=== PATIENT | male | born 1945 | race Asian ===

== ENCOUNTER → 2017-04-08 | Outpatient (CLI) | payer OTHER, MEDICAID ==
[~2017-04-08] MED LIST: ASPI-496 PO; ATOR40TA78 PO; CARV12.543 PO; DIGO125T PO; METF500T4 PO; OLME20TA19 PO; OXYC1TAB7 PO; REGADENOSON 0.4 MG/5 ML SYRINGE ONE; RIVA20TA PO; WARF2.5T73 PO
== END | disposition home or self-care (01) ==
LOC: CFH 07:02
PROVIDERS: ATTEND Internal Medicine Cardiovascular Disease
DX: I08.2 Rheumatic disorders of both aortic and tricuspid valves (principal); I25.10 Atherosclerotic heart disease of native coronary artery without angina pectoris; I25.2 Old myocardial infarction; I10 Essential (primary) hypertension; Z95.0 Presence of cardiac pacemaker
CPT/HCPCS: 93306; J2785

== ENCOUNTER → 2017-05-01 | Outpatient (CLI) | payer OTHER, MEDICAID | END | disposition home or self-care (01) | LOC: CFH 08:15 | PROVIDERS: ATTEND Internal Medicine Cardiovascular Disease | DX: I25.9 Chronic ischemic heart disease, unspecified (principal); I25.10 Atherosclerotic heart disease of native coronary artery without angina pectoris; I10 Essential (primary) hypertension | CPT/HCPCS: 78452; 93017; A9502; J2785 ==

== ENCOUNTER 2018-07-04 18:52 | Emergency (ER) | payer OTHER, MEDICAID ==
[~2018-07-04] VITALS: Ht 167.6 cm; Wt 69.4 kg
[~2018-07-04 18:52] MED LIST changes: +METF500T17 PO; -METF500T4 PO; +OLME20TA17 PO; -OLME20TA19 PO; -REGADENOSON 0.4 MG/5 ML SYRINGE ONE; +WARF2.5T32 PO; -WARF2.5T73 PO
[2018-07-04 18:56] VITALS: BP 132/63
[2018-07-04 19:56] LABS: INTERNATIONAL NORMALIZED RATIO 1.05 (0.93-1.1); PROTHROMBIN TIME 11.1 Seconds (9.6-11.5)
== END 2018-07-04 20:05 | disposition home or self-care (01) ==
LOC: ED 19:16
DX: J06.9 Acute upper respiratory infection, unspecified (principal); Z95.1 Presence of aortocoronary bypass graft; Z95.0 Presence of cardiac pacemaker; E11.9 Type 2 diabetes mellitus without complications; I11.9 Hypertensive heart disease without heart failure
CPT/HCPCS: 36415; 85610; 85730; 99283

== ENCOUNTER 2018-09-08 03:59 | Emergency (ER) | payer MEDICARE, MEDICAID ==
[~2018-09-08] VITALS: Ht 170.2 cm; Wt 67.2 kg
--- NOTE | 2018-09-08 04:16 | NUR ---
PT HERE FOR HTN WITH DIZZINESS. PT DENIES CP OR HEADACHE. BP ELEVATED IN TRIAGE. MD AT BEDSIDE.
[2018-09-08 04:46] VITALS: BP 157/75
[2018-09-08 05:23] LABS: BASOPHILS # (AUTO) 0.05 x10^3/uL (0-0.1); BASOPHILS % (AUTO) 1 % (0-1); EOSINOPHILS # (AUTO) 0.14 x10^3/uL (0-0.4); EOSINOPHILS % (AUTO) 2 % (1-7); LYMPHOCYTES # (AUTO) 2.23 x10^3/uL (1-3.4); LYMPHOCYTES % (AUTO) 38 % (22-44); MD NO; MEAN CORPUSCULAR HEMOGLOBIN 31.3 pg (27.5-34.5); MEAN CORPUSCULAR HGB CONC 34.5 g/dL (33.2-36.2); MEAN CORPUSCULAR VOLUME 90.7 fL (81-97); MEAN PLATELET VOLUME 8.8 fL (7.4-10.4); MONOCYTES # (AUTO) 0.48 x10^3/uL (0.2-0.8); MONOCYTES % (AUTO) 8 % (2-9); NEUTROPHILS % (AUTO) 51 % (42-75); PLATELET COUNT 135 x10^3/uL (130-400); RED BLOOD COUNT 4.56 x10^6/uL (4.38-5.82); RED CELL DISTRIBUTION WIDTH 13.8 % (9.4-14.8)
--- NOTE | 2018-09-08 05:32 | NUR ---
PTS BP HAS IMPROVED TO 154/71. MD AWARE. HOLDING CLONIDINE PER MDS ORDER.
[2018-09-08 05:34] LABS: ALBUMIN 3.4 g/dL (3.4-5.0); ANION GAP 4 mmol/L (5-15); CALCIUM 8.6 mg/dL (8.5-10.1); CHLORIDE 109 mmol/L (98-107)
[2018-09-08 05:40] LABS: CREATININE 0.92 mg/dL (0.7-1.3); TROPONIN I 0.031 ng/mL (0.000-0.045)
--- NOTE | 2018-09-08 06:13 | NUR ---
Patient given discharge instructions and they have confirmed that they understand the instructions. Patient ambulatory with steady gait.
== END 2018-09-08 06:16 | disposition home or self-care (01) ==
LOC: ED 05:33
DX: I10 Essential (primary) hypertension (principal); Z95.0 Presence of cardiac pacemaker; Z95.1 Presence of aortocoronary bypass graft; E11.9 Type 2 diabetes mellitus without complications
CPT/HCPCS: 36415; 71045; 80048; 80162; 82040; 83880; 84484; 85025; 93005; 99284

== ENCOUNTER 2019-01-09 20:04 | Inpatient (IN) | payer MEDICARE, MEDICAID ==
[~2019-01-09] VITALS: Ht 170.2 cm; Wt 75.2 kg
[~2019-01-09 20:04] MED LIST changes: +ACET325T14 PO; +CYCL-259 PO; +HYDR-3240 PO
[2019-01-09] MEDS ORDERED: SODIUM CHLORIDE 0.9% 1,000ML IVBOLUS ONE ×2 (20:30→21:30)
[2019-01-09] MEDS ORDERED: FENTANYL PF 100 MCG/2ML ONE ×2 (20:36→22:21)
[2019-01-09] MEDS: FENTANYL PF 100 MCG/2ML IVPush PRN ×2 (20:40→22:47)
--- NOTE | 2019-01-09 20:40 | NUR ---
PT TO XRAY
[2019-01-09 20:45] LABS: MEAN CORPUSCULAR HGB CONC 33.9 g/dL (33.2-36.2); MEAN CORPUSCULAR VOLUME 91.6 fL (81-97); MEAN PLATELET VOLUME 8.8 fL (7.4-10.4); PLATELET COUNT 219 x10^3/uL (130-400); RED BLOOD COUNT 2.97 x10^6/uL (4.38-5.82); RED CELL DISTRIBUTION WIDTH 15.2 % (9.4-14.8)
[2019-01-09 20:53] LABS: ALBUMIN 1.5 g/dL (3.4-5.0); ANION GAP 11 mmol/L (5-15); CALCIUM 7.6 mg/dL (8.5-10.1); CHLORIDE 98 mmol/L (98-107); CREATININE 4.05 mg/dL (0.7-1.3)
[2019-01-09 20:58] LABS: BASOPHILS % (AUTO) 1 % (0-1); EOSINOPHILS # (AUTO) 0.01 x10^3/uL (0-0.4); EOSINOPHILS % (AUTO) 0 % (1-7); LYMPHOCYTES % (AUTO) 3 % (22-44); MD SCAN; MONOCYTES # (AUTO) 0.72 x10^3/uL (0.2-0.8); MONOCYTES % (AUTO) 5 % (2-9); NEUTROPHILS # (AUTO) 13.64 x10^3/uL (1.8-6.8); NEUTROPHILS % (AUTO) 92 % (42-75)
--- NOTE | 2019-01-09 21:24 | NUR ---
NOTIFIED OF CRITICAL TROPONIN AND BUN
[2019-01-09] MEDS ORDERED: HEPARIN 25,000 UNITS/500ML PMX 500 ML ONE (21:54)
[2019-01-09] MEDS ORDERED: HEPARIN 5,000 UNITS/ML, 1ML ONE (21:55)
[2019-01-09] MEDS ORDERED: HEPARIN 5,000 UNITS/ML, 1ML IV PRN (22:00)
[2019-01-09] MEDS ORDERED: HEPARIN 25,000 UNITS/500ML PMX 500 ML IV PRN (22:00)
[2019-01-09] MEDS ORDERED: HEPARIN 5,000 UNITS/ML, 1ML IV ONE (22:00)
--- NOTE | 2019-01-09 22:08 | NUR ---
tamia rn: verified heparin with primary rn.
--- NOTE | 2019-01-09 22:17 | NUR ---
HEPARIN GTT INITIATED, PT STILL C/O PAIN. MD TO ORDER VALIUM. 2ND LITER NS COMPLETED. ADMIT ORDERS IN AND MD DISCUSSED POC WITH PT AND FAMILY. PT CONFUSED AND PER FAMILY MAKING ODD STATEMENTS AT TIMES, MD AWARE. EMT ATTEMPTING TO START ANOTHER IV. ADMIT ORDERS IN, AWAITNG BED ASSIGNMENT
--- NOTE | 2019-01-09 22:38 | NUR ---
REPORT TO ANAY
[2019-01-09] MEDS ORDERED: SODIUM CHLORIDE 0.9% 1,000 ML IV SCH (23:00)
[2019-01-09] MEDS ORDERED: NITROGLYCERIN 0.4 MG/SPRAY SL PRN (23:00)
[2019-01-09] MEDS ORDERED: BACLOFEN 10 MG TABLET PO PRN (23:00)
[2019-01-09] MEDS ORDERED: morphine SULFATE 10 MG/ML, 1ML IV PRN (23:00)
[2019-01-09 23:01] VITALS: BP 106/61
[2019-01-10] VITALS (7 sets, daily range): BP systolic 81–108; BP diastolic 47–55
[2019-01-10] MEDS ORDERED: DEXTROSE 50%, 50ML SYRINGE IVPush PRN
[2019-01-10] MEDS ORDERED: GLUCAGON 1 MG IM PRN
[2019-01-10] MEDS ORDERED: DEXTROSE 4 GM TAB.CHEW PO PRN
[2019-01-10] MEDS ORDERED: HEPARIN MC SCH (00:30)
[2019-01-10] MEDS ORDERED: AZITHROMYCIN 500 MG TABLET PO ONE (00:30)
[2019-01-10] MEDS ORDERED: CEFTRIAXONE PMX 1GM/50ML 50 ML IV SCH (00:30)
[2019-01-10 01:19] LABS: CHOLESTEROL, TOTAL 97 mg/dL (140-239); TRIGLYCERIDES 371 mg/dL (50-200); VLDL CHOLESTEROL 74 mg/dL (0-25)
[2019-01-10] MEDS: ATORVASTATIN 80 MG TABLET PO SCH ×2 (01:21→21:09)
[2019-01-10 01:22] LABS: CHOL/HDL RATIO 10.8; HDL CHOL % 9 % (26-37); HDL CHOLESTEROL (DIRECT) 9 mg/dL (40-60); LDL CHOLESTEROL,CALCULATED 14 mg/dL (54-169); LDL/HDL RATIO 1.6 (0.5-3.0)
[2019-01-10] MEDS: SODIUM CHLORIDE FLUSH 10ML SYR IVF SCH ×5 (01:27→21:09)
[2019-01-10] MEDS ORDERED: DILTIAZEM 5 MG/ML, 5ML IVPush ONE (01:30)
[2019-01-10] MEDS ORDERED: SODIUM CHLORIDE 0.9% 1,000 ML IV SCH ×2 (01:30→23:00)
[2019-01-10] MEDS ORDERED: DILTIAZEM 5 MG/ML, 5ML IVPush PRN (02:00)
[2019-01-10 05:25] LABS: MEAN CORPUSCULAR HEMOGLOBIN 30.3 pg (27.5-34.5); MEAN CORPUSCULAR HGB CONC 33.4 g/dL (33.2-36.2); MEAN CORPUSCULAR VOLUME 90.5 fL (81-97); MEAN PLATELET VOLUME 9.3 fL (7.4-10.4); PLATELET COUNT 187 x10^3/uL (130-400); RED BLOOD COUNT 2.89 x10^6/uL (4.38-5.82); RED CELL DISTRIBUTION WIDTH 15.6 % (9.4-14.8)
[2019-01-10 05:38] LABS: CALCIUM 7.5 mg/dL (8.5-10.1); CHLORIDE 102 mmol/L (98-107)
[2019-01-10 05:44] LABS: ALANINE AMINOTRANSFERASE 105 U/L (12-78); ALBUMIN 1.5 g/dL (3.4-5.0); ALKALINE PHOSPHATASE 357 U/L (45-117); ANION GAP 11 mmol/L (5-15); BILIRUBIN,TOTAL 2.3 mg/dL (0.2-1.0); CREATININE 4.02 mg/dL (0.7-1.3); TOTAL PROTEIN 5.8 g/dL (6.4-8.2)
[2019-01-10 05:51] LABS: BASOPHILS # (AUTO) 0.01 x10^3/uL (0-0.1); BASOPHILS % (AUTO) 0 % (0-1); EOSINOPHILS # (AUTO) 0.01 x10^3/uL (0-0.4); EOSINOPHILS % (AUTO) 0 % (1-7); LYMPHOCYTES # (AUTO) 0.64 x10^3/uL (1-3.4); LYMPHOCYTES % (AUTO) 5 % (22-44); MD SCAN; MONOCYTES # (AUTO) 0.77 x10^3/uL (0.2-0.8); MONOCYTES % (AUTO) 6 % (2-9); NEUTROPHILS # (AUTO) 12.34 x10^3/uL (1.8-6.8); NEUTROPHILS % (AUTO) 90 % (42-75)
[2019-01-10] MEDS ORDERED: CARVEDILOL 12.5 MG TABLET PO SCH ×2 (06:00)
[2019-01-10] MEDS: HEPARIN 5,000 UNITS/ML, 1ML IV PRN ×3 (06:24→21:44)
[2019-01-10] MEDS: ASPIRIN 81 MG TABLET EC PO SCH (06:24)
[2019-01-10] MEDS ORDERED: AMIODARONE 150 MG in DEXTROSE 5% 100 ML IV ONE (08:30)
[2019-01-10] MEDS ORDERED: FILTER 0.22 MICRON FOR AMIODARONE IV PRN (09:00)
[2019-01-10] MEDS: INSULIN REGULAR 100 UNITS/ML, 3ML VIAL SQ-INSULIN SCH ×4 (09:20→21:14)
[2019-01-10] MEDS: DIGOXIN 0.125 MG TABLET PO SCH (09:24)
[2019-01-10] MEDS: AZITHROMYCIN 250 MG TABLET PO SCH (09:28)
[2019-01-10] MEDS: AMIODARONE 900 MG in DEXTROSE 5% 482 ML IV PRN ×2 (09:32→23:09)
[2019-01-10 12:10] LABS: HEMOGLOBIN A1C 6.6 % (4.2-6.3)
[2019-01-10 12:19] LABS: O2 FLOW 3 L/min
[2019-01-10] MEDS ORDERED: CEFTRIAXONE PMX 1GM/50ML 50 ML IV ONE (15:15)
[2019-01-10] MEDS ORDERED: SODIUM CHLORIDE 0.9% 1,000ML IVBOLUS ONE (16:00)
[2019-01-10 17:01] LABS: ANION GAP 12 mmol/L (5-15); CALCIUM 7.3 mg/dL (8.5-10.1); CHLORIDE 102 mmol/L (98-107); CREATININE 4.64 mg/dL (0.7-1.3)
[2019-01-10] MEDS: SODIUM CHLORIDE 0.9% 1,000 ML IV SCH ×2 (18:17→23:17)
[2019-01-10] MEDS: NOREPINEPHRINE 4 MG in SODIUM CHLORIDE 0.9% 246 ML IV PRN (23:09)
[2019-01-10] MEDS: HEPARIN 25,000 UNITS/500ML PMX 500 ML IV PRN (23:16)
[2019-01-11 01:05] LABS: CULTURE INDICATED? YES; MICROSCOPIC INDICATED
[2019-01-11 03:49] LABS: ALANINE AMINOTRANSFERASE 95 U/L (12-78); ALBUMIN 1.2 g/dL (3.4-5.0); ANION GAP 12 mmol/L (5-15); CHLORIDE 104 mmol/L (98-107); CREATININE 4.67 mg/dL (0.7-1.3)
[2019-01-11 03:51] LABS: ALKALINE PHOSPHATASE 285 U/L (45-117); TOTAL PROTEIN 5.1 g/dL (6.4-8.2)
[2019-01-11 04:33] LABS: MEAN CORPUSCULAR HEMOGLOBIN 30.5 pg (27.5-34.5); MEAN CORPUSCULAR HGB CONC 32.9 g/dL (33.2-36.2); MEAN CORPUSCULAR VOLUME 92.5 fL (81-97); MEAN PLATELET VOLUME 9.2 fL (7.4-10.4); PLATELET COUNT 224 x10^3/uL (130-400); RED BLOOD COUNT 2.51 x10^6/uL (4.38-5.82); RED CELL DISTRIBUTION WIDTH 15.6 % (9.4-14.8)
[2019-01-11 04:48] LABS: MD YES
[2019-01-11 04:50] LABS: LYMPHS% (MANUAL) 7 % (22-44); MONOS#(MANUAL) 0.69 x10^3/uL (0.3-2.7); MONOS% (MANUAL) 4 % (2-9); SEG#(MANUAL) 15.31 x10^3/uL (1.8-6.8); SEGS% (MANUAL) 89 % (42-75)
[2019-01-11 04:52] LABS: ANISOCYTOSIS 1+; CRENATED 1+; HYPOCHROMIA 1+
[2019-01-11 04:53] LABS: <PLATELET ESTIMATE> ADEQUATE
[2019-01-11 04:54] LABS: <PLT MORPHOLOGY> NORMAL PLT MORPH
[2019-01-11] MEDS: INSULIN REGULAR 100 UNITS/ML, 3ML VIAL SQ-INSULIN SCH ×4 (05:44→20:36)
[2019-01-11] MEDS: ASPIRIN 81 MG TABLET EC PO SCH (05:49)
[2019-01-11] MEDS: CEFTRIAXONE PMX 2GM/50ML 50 ML IV SCH (05:49)
[2019-01-11] MEDS: NOREPINEPHRINE 4 MG in SODIUM CHLORIDE 0.9% 246 ML IV PRN ×4 (05:52→20:33)
[2019-01-11] MEDS: AZITHROMYCIN 250 MG TABLET PO SCH (09:11)
[2019-01-11] MEDS: ALBUMIN HUMAN 25% 100 ML IV SCH ×2 (09:11→16:11)
[2019-01-11] MEDS: DIGOXIN 0.125 MG TABLET PO SCH (09:11)
[2019-01-11] MEDS: SODIUM CHLORIDE FLUSH 10ML SYR IVF SCH ×4 (09:12→20:31)
[2019-01-11 13:41] LABS: CULTURE INDICATED? YES; MICROSCOPIC INDICATED
[2019-01-11] MEDS ORDERED: RACEPINEPHRINE INH 2.25%, 0.5ML NPPB PRN (14:30)
[2019-01-11] MEDS: ATORVASTATIN 80 MG TABLET PO SCH (20:30)
[2019-01-11] MEDS: HEPARIN 25,000 UNITS/500ML PMX 500 ML IV PRN (23:26)
[2019-01-12] VITALS (21 sets, daily range): BP systolic 88–127; BP diastolic 33–81
[2019-01-12] MEDS: NOREPINEPHRINE 4 MG in SODIUM CHLORIDE 0.9% 246 ML IV PRN ×2 (00:37→10:31)
[2019-01-12] MEDS: ALBUMIN HUMAN 25% 100 ML IV SCH ×3 (00:37→16:06)
[2019-01-12] MEDS ORDERED: FUROSEMIDE 40 MG/4 ML IV ONE (02:30)
[2019-01-12] MEDS: CEFTRIAXONE PMX 2GM/50ML 50 ML IV SCH (05:25)
[2019-01-12] MEDS: ASPIRIN 81 MG TABLET EC PO SCH (05:25)
[2019-01-12] MEDS: INSULIN REGULAR 100 UNITS/ML, 3ML VIAL SQ-INSULIN SCH ×4 (05:29→21:00)
[2019-01-12 05:38] LABS: MEAN CORPUSCULAR HGB CONC 32.5 g/dL (33.2-36.2); MEAN CORPUSCULAR VOLUME 92.2 fL (81-97); MEAN PLATELET VOLUME 9.1 fL (7.4-10.4); PLATELET COUNT 207 x10^3/uL (130-400); RED BLOOD COUNT 1.75 x10^6/uL (4.38-5.82); RED CELL DISTRIBUTION WIDTH 16.3 % (9.4-14.8)
[2019-01-12 06:12] LABS: ALANINE AMINOTRANSFERASE 144 U/L (12-78); ALBUMIN 1.7 g/dL (3.4-5.0); ANION GAP 14 mmol/L (5-15); CALCIUM 7.1 mg/dL (8.5-10.1); CHLORIDE 103 mmol/L (98-107); CREATININE 4.39 mg/dL (0.7-1.3)
[2019-01-12 06:16] LABS: ALKALINE PHOSPHATASE 285 U/L (45-117); BILIRUBIN,TOTAL 2.3 mg/dL (0.2-1.0); TOTAL PROTEIN 5.1 g/dL (6.4-8.2)
[2019-01-12 06:24] LABS: BASOPHILS # (AUTO) 0.06 x10^3/uL (0-0.1); BASOPHILS % (AUTO) 0 % (0-1); EOSINOPHILS # (AUTO) 0.07 x10^3/uL (0-0.4); EOSINOPHILS % (AUTO) 0 % (1-7); LYMPHOCYTES # (AUTO) 0.86 x10^3/uL (1-3.4); LYMPHOCYTES % (AUTO) 5 % (22-44); MD SCAN; MONOCYTES # (AUTO) 0.57 x10^3/uL (0.2-0.8); MONOCYTES % (AUTO) 4 % (2-9); NEUTROPHILS # (AUTO) 14.21 x10^3/uL (1.8-6.8); NEUTROPHILS % (AUTO) 90 % (42-75)
[2019-01-12] MEDS ORDERED: PROPOFOL 10 MG/ML, 100ML IV ONE (08:00)
[2019-01-12] MEDS ORDERED: MIDAZOLAM 1 MG/ML, 5ML ONE (08:00)
[2019-01-12] MEDS ORDERED: ETOMIDATE 20 MG/10 ML ONE (08:00)
[2019-01-12] MEDS ORDERED: PANTOPRAZOLE 80 MG in SODIUM CHLORIDE 0.9% 50 ML IV ONE (08:30)
[2019-01-12] MEDS ORDERED: DESMOPRESSIN IV ONE (09:00)
[2019-01-12] MEDS ORDERED: SODIUM CHLORIDE 0.9% IV ONE (09:00)
[2019-01-12] MEDS ORDERED: LIDOCAINE-MPF 1%, 2ML ENDO PRN (09:00)
[2019-01-12] MEDS: DIGOXIN 0.125 MG TABLET PO SCH (09:00)
[2019-01-12] MEDS: PANTOPRAZOLE 80 MG in SODIUM CHLORIDE 0.9% 100 ML IV SCH ×2 (09:01→16:09)
[2019-01-12] MEDS: SODIUM CHLORIDE FLUSH 10ML SYR IVF SCH ×4 (09:02→21:24)
[2019-01-12] MEDS: AZITHROMYCIN 250 MG in SODIUM CHLORIDE 0.9% 250 ML IV SCH (10:25)
[2019-01-12] MEDS: PROPOFOL 100 ML IV PRN ×2 (10:49→23:58)
[2019-01-12] MEDS ORDERED: SODIUM BICARB 8.4%, 50ML SYRINGE ONE (15:23)
[2019-01-12] MEDS ORDERED: SODIUM BICARBONATE 1 MEQ/ML, 50ML VIAL IVPush STA (15:24)
[2019-01-12] MEDS ORDERED: VASOPRESSIN 100 UNIT in SODIUM CHLORIDE 0.9% 495 ML IV PRN (15:30)
[2019-01-12] MEDS: NOREPINEPHRINE 8 MG in SODIUM CHLORIDE 0.9% 242 ML IV PRN (19:40)
[2019-01-12] MEDS: ATORVASTATIN 80 MG TABLET PO SCH (20:26)
[2019-01-13] VITALS (10 sets, daily range): BP systolic 96–122; BP diastolic 32–65
[2019-01-13] MEDS: PANTOPRAZOLE 80 MG in SODIUM CHLORIDE 0.9% 100 ML IV SCH ×3 (00:56→18:30)
[2019-01-13] MEDS: ALBUMIN HUMAN 25% 100 ML IV SCH ×3 (00:59→15:58)
[2019-01-13 04:40] LABS: ALBUMIN 2.2 g/dL (3.4-5.0); ANION GAP 11 mmol/L (5-15); CALCIUM 6.8 mg/dL (8.5-10.1); CHLORIDE 102 mmol/L (98-107); CREATININE 3.81 mg/dL (0.7-1.3)
[2019-01-13 04:44] LABS: MEAN CORPUSCULAR HEMOGLOBIN 30.6 pg (27.5-34.5); MEAN CORPUSCULAR HGB CONC 33.9 g/dL (33.2-36.2); MEAN CORPUSCULAR VOLUME 90.2 fL (81-97); MEAN PLATELET VOLUME 8.7 fL (7.4-10.4); PLATELET COUNT 160 x10^3/uL (130-400); RED BLOOD COUNT 2.25 x10^6/uL (4.38-5.82); RED CELL DISTRIBUTION WIDTH 14.6 % (9.4-14.8)
[2019-01-13] MEDS: CEFTRIAXONE PMX 2GM/50ML 50 ML IV SCH (05:46)
[2019-01-13 06:09] LABS: BASOPHILS # (AUTO) 0.07 x10^3/uL (0-0.1); BASOPHILS % (AUTO) 0 % (0-1); EOSINOPHILS # (AUTO) 0.23 x10^3/uL (0-0.4); EOSINOPHILS % (AUTO) 2 % (1-7); LYMPHOCYTES # (AUTO) 0.75 x10^3/uL (1-3.4); LYMPHOCYTES % (AUTO) 5 % (22-44); MD SCAN; MONOCYTES # (AUTO) 1.23 x10^3/uL (0.2-0.8); MONOCYTES % (AUTO) 8 % (2-9); NEUTROPHILS # (AUTO) 13.36 x10^3/uL (1.8-6.8); NEUTROPHILS % (AUTO) 85 % (42-75)
[2019-01-13] MEDS: INSULIN REGULAR 100 UNITS/ML, 3ML VIAL SQ-INSULIN SCH ×4 (06:45→21:00)
[2019-01-13] MEDS: PROPOFOL 100 ML IV PRN ×4 (07:16→20:19)
[2019-01-13] MEDS: NOREPINEPHRINE 8 MG in SODIUM CHLORIDE 0.9% 242 ML IV PRN (07:16)
[2019-01-13] MEDS: AZITHROMYCIN 250 MG in SODIUM CHLORIDE 0.9% 250 ML IV SCH (07:18)
[2019-01-13] MEDS: SODIUM CHLORIDE FLUSH 10ML SYR IVF SCH ×4 (07:20→21:12)
[2019-01-13 10:52] LABS: INTERNATIONAL NORMALIZED RATIO 1.15 (0.93-1.1)
[2019-01-13] MEDS: FENTANYL PF 100 MCG/2ML IVPush PRN ×3 (11:45→22:35)
[2019-01-13] MEDS ORDERED: MIDAZOLAM 1 MG/ML, 5ML ONE (11:52)
[2019-01-13] MEDS ORDERED: FENTANYL PF 100 MCG/2ML ONE (11:52)
[2019-01-13] MEDS: ATORVASTATIN 80 MG TABLET PO SCH (21:00)
[2019-01-14] MEDS: FENTANYL PF 100 MCG/2ML IVPush PRN (00:17)
[2019-01-14] MEDS: ALBUMIN HUMAN 25% 100 ML IV SCH ×3 (00:19→16:20)
[2019-01-14] MEDS: PANTOPRAZOLE 80 MG in SODIUM CHLORIDE 0.9% 100 ML IV SCH (02:54)
[2019-01-14 04:46] LABS: MEAN CORPUSCULAR HEMOGLOBIN 30.9 pg (27.5-34.5); MEAN CORPUSCULAR HGB CONC 34.5 g/dL (33.2-36.2); MEAN CORPUSCULAR VOLUME 89.5 fL (81-97); MEAN PLATELET VOLUME 8.5 fL (7.4-10.4); PLATELET COUNT 138 x10^3/uL (130-400); RED BLOOD COUNT 2.37 x10^6/uL (4.38-5.82); RED CELL DISTRIBUTION WIDTH 14.8 % (9.4-14.8)
[2019-01-14 04:50] LABS: INTERNATIONAL NORMALIZED RATIO 1.17 (0.93-1.1); PROTHROMBIN TIME 12.2 Seconds (9.6-11.5)
[2019-01-14 04:57] LABS: ANION GAP 11 mmol/L (5-15); CALCIUM 7.1 mg/dL (8.5-10.1); CHLORIDE 102 mmol/L (98-107)
[2019-01-14 04:58] LABS: CREATININE 3.88 mg/dL (0.7-1.3)
[2019-01-14 05:19] LABS: BASOPHILS # (AUTO) 0.02 x10^3/uL (0-0.1); BASOPHILS % (AUTO) 0 % (0-1); EOSINOPHILS # (AUTO) 0.09 x10^3/uL (0-0.4); EOSINOPHILS % (AUTO) 1 % (1-7); LYMPHOCYTES # (AUTO) 0.69 x10^3/uL (1-3.4); LYMPHOCYTES % (AUTO) 4 % (22-44); MD SCAN; MONOCYTES # (AUTO) 0.59 x10^3/uL (0.2-0.8); MONOCYTES % (AUTO) 4 % (2-9); NEUTROPHILS # (AUTO) 14.04 x10^3/uL (1.8-6.8); NEUTROPHILS % (AUTO) 91 % (42-75)
[2019-01-14] MEDS: CEFTRIAXONE PMX 2GM/50ML 50 ML IV SCH (05:37)
[2019-01-14] MEDS: PROPOFOL 100 ML IV PRN ×4 (05:37→23:37)
[2019-01-14] MEDS: INSULIN REGULAR 100 UNITS/ML, 3ML VIAL SQ-INSULIN SCH ×4 (06:47→20:29)
[2019-01-14] MEDS ORDERED: AZITHROMYCIN 250 MG in SODIUM CHLORIDE 0.9% 250 ML IV SCH (08:30)
[2019-01-14] MEDS: SODIUM CHLORIDE FLUSH 10ML SYR IVF SCH ×4 (09:30→20:29)
--- NOTE | 2019-01-14 10:32 | NUR ---
TF GOAL: w/ propofol: VITAL AF 1.2 @ 60ML/HR off propofol: NEPRO @ 50ML/HR
[2019-01-14] MEDS: PANTOPRAZOLE 40 MG IV IVPush SCH ×2 (12:38→23:00)
[2019-01-14] MEDS: ATORVASTATIN 80 MG TABLET PO SCH (20:29)
[2019-01-15] MEDS: ALBUMIN HUMAN 25% 100 ML IV SCH ×3 (00:16→16:42)
[2019-01-15] MEDS: INSULIN REGULAR 100 UNITS/ML, 3ML VIAL SQ-INSULIN SCH ×4 (03:00→20:45)
[2019-01-15 03:18] LABS: ANION GAP 10 mmol/L (5-15); CALCIUM 7.7 mg/dL (8.5-10.1); CHLORIDE 100 mmol/L (98-107); CREATININE 3.37 mg/dL (0.7-1.3); TRIGLYCERIDES 287 mg/dL (50-200)
[2019-01-15 03:19] LABS: MEAN CORPUSCULAR HEMOGLOBIN 30.8 pg (27.5-34.5); MEAN CORPUSCULAR HGB CONC 34.5 g/dL (33.2-36.2); MEAN CORPUSCULAR VOLUME 89.2 fL (81-97); MEAN PLATELET VOLUME 8.8 fL (7.4-10.4); PLATELET COUNT 122 x10^3/uL (130-400); RED BLOOD COUNT 2.36 x10^6/uL (4.38-5.82); RED CELL DISTRIBUTION WIDTH 15.5 % (9.4-14.8)
[2019-01-15 03:56] LABS: BASOPHILS # (AUTO) 0.04 x10^3/uL (0-0.1); BASOPHILS % (AUTO) 0 % (0-1); EOSINOPHILS # (AUTO) 0.16 x10^3/uL (0-0.4); EOSINOPHILS % (AUTO) 1 % (1-7); LYMPHOCYTES # (AUTO) 0.55 x10^3/uL (1-3.4); LYMPHOCYTES % (AUTO) 4 % (22-44); MD SCAN; MONOCYTES # (AUTO) 0.48 x10^3/uL (0.2-0.8); MONOCYTES % (AUTO) 3 % (2-9); NEUTROPHILS # (AUTO) 13.62 x10^3/uL (1.8-6.8); NEUTROPHILS % (AUTO) 92 % (42-75)
[2019-01-15] MEDS: PROPOFOL 100 ML IV PRN ×2 (04:59→16:43)
[2019-01-15] MEDS: CEFTRIAXONE PMX 2GM/50ML 50 ML IV SCH (05:27)
[2019-01-15] MEDS: SODIUM CHLORIDE FLUSH 10ML SYR IVF SCH ×4 (08:22→21:00)
[2019-01-15] MEDS ORDERED: AMIODARONE 150 MG in DEXTROSE 5% 100 ML IV ONE (11:00)
[2019-01-15] MEDS: PANTOPRAZOLE 40 MG IV IVPush SCH ×2 (11:23→22:41)
[2019-01-15] MEDS: AMIODARONE 900 MG in DEXTROSE 5% 482 ML IV PRN (11:40)
[2019-01-15] MEDS: ATORVASTATIN 80 MG TABLET PO SCH (20:31)
[2019-01-16] MEDS: PROPOFOL 100 ML IV PRN ×3 (00:14→12:31)
[2019-01-16] MEDS: ALBUMIN HUMAN 25% 100 ML IV SCH ×3 (00:15→16:54)
[2019-01-16] MEDS: ACETAMINOPHEN 650 MG/20.3 ML UDC PO PRN (01:22)
[2019-01-16] MEDS: INSULIN REGULAR 100 UNITS/ML, 3ML VIAL SQ-INSULIN SCH ×4 (03:44→20:50)
[2019-01-16 03:50] LABS: MEAN CORPUSCULAR HEMOGLOBIN 30.8 pg (27.5-34.5); MEAN CORPUSCULAR HGB CONC 34.5 g/dL (33.2-36.2); MEAN CORPUSCULAR VOLUME 89.2 fL (81-97); MEAN PLATELET VOLUME 8.9 fL (7.4-10.4); PLATELET COUNT 117 x10^3/uL (130-400); RED BLOOD COUNT 2.33 x10^6/uL (4.38-5.82); RED CELL DISTRIBUTION WIDTH 15.5 % (9.4-14.8)
[2019-01-16 04:02] LABS: ALBUMIN 2.7 g/dL (3.4-5.0); ANION GAP 6 mmol/L (5-15); CALCIUM 7.5 mg/dL (8.5-10.1); CHLORIDE 99 mmol/L (98-107); CREATININE 3.14 mg/dL (0.7-1.3)
[2019-01-16 04:11] LABS: BASOPHILS # (AUTO) 0.01 x10^3/uL (0-0.1); BASOPHILS % (AUTO) 0 % (0-1); EOSINOPHILS # (AUTO) 0.12 x10^3/uL (0-0.4); EOSINOPHILS % (AUTO) 1 % (1-7); LYMPHOCYTES # (AUTO) 0.42 x10^3/uL (1-3.4); LYMPHOCYTES % (AUTO) 3 % (22-44); MD SCAN; MONOCYTES # (AUTO) 0.46 x10^3/uL (0.2-0.8); MONOCYTES % (AUTO) 3 % (2-9); NEUTROPHILS # (AUTO) 14.62 x10^3/uL (1.8-6.8); NEUTROPHILS % (AUTO) 94 % (42-75)
[2019-01-16] MEDS: CEFTRIAXONE PMX 2GM/50ML 50 ML IV SCH (05:46)
[2019-01-16] MEDS ORDERED: AMIODARONE 50 MG/ML, 3ML IVPush ONE (08:00)
[2019-01-16] MEDS ORDERED: AMIODARONE IN D5W 100 ML IV ONE (08:00)
[2019-01-16] MEDS: FILTER 0.22 MICRON FOR AMIODARONE IV PRN (08:07)
[2019-01-16] MEDS: AMIODARONE 900 MG in DEXTROSE 5% 482 ML IV PRN (10:42)
[2019-01-16] MEDS: PANTOPRAZOLE 40 MG IV IVPush SCH (11:42)
[2019-01-16] MEDS: ATORVASTATIN 80 MG TABLET PO SCH (20:43)
[2019-01-16] MEDS: FENTANYL PF 100 MCG/2ML IVPush PRN (21:14)
[2019-01-17] MEDS: PANTOPRAZOLE 40 MG IV IVPush SCH ×3 (00:13→23:06)
[2019-01-17] MEDS: ALBUMIN HUMAN 25% 100 ML IV SCH ×3 (00:13→19:18)
[2019-01-17] MEDS: PROPOFOL 100 ML IV PRN ×2 (00:14→16:15)
[2019-01-17] MEDS: INSULIN REGULAR 100 UNITS/ML, 3ML VIAL SQ-INSULIN SCH ×4 (03:51→21:00)
[2019-01-17 04:12] LABS: ALBUMIN 2.9 g/dL (3.4-5.0); ANION GAP 5 mmol/L (5-15); CALCIUM 7.9 mg/dL (8.5-10.1); CHLORIDE 99 mmol/L (98-107)
[2019-01-17 04:18] LABS: ALANINE AMINOTRANSFERASE 39 U/L (12-78); ALKALINE PHOSPHATASE 305 U/L (45-117); BILIRUBIN,TOTAL 2.3 mg/dL (0.2-1.0); CHOL/HDL RATIO 5.7; CHOLESTEROL, TOTAL 51 mg/dL (140-239); CREATININE 2.96 mg/dL (0.7-1.3); HDL CHOL % 18 % (26-37); HDL CHOLESTEROL (DIRECT) 9 mg/dL (40-60); TOTAL PROTEIN 6.9 g/dL (6.4-8.2); TRIGLYCERIDES 289 mg/dL (50-200); VLDL CHOLESTEROL 58 mg/dL (0-25)
[2019-01-17 04:19] LABS: LDL CHOLESTEROL,CALCULATED < 5 mg/dL (54-169); LDL/HDL RATIO 0.6 (0.5-3.0); MEAN CORPUSCULAR HEMOGLOBIN 30.8 pg (27.5-34.5); MEAN CORPUSCULAR HGB CONC 34.3 g/dL (33.2-36.2); MEAN PLATELET VOLUME 9.7 fL (7.4-10.4); PLATELET COUNT 122 x10^3/uL (130-400); RED BLOOD COUNT 2.45 x10^6/uL (4.38-5.82); RED CELL DISTRIBUTION WIDTH 15.8 % (9.4-14.8)
[2019-01-17 04:47] LABS: BASOPHILS # (AUTO) 0.02 x10^3/uL (0-0.1); BASOPHILS % (AUTO) 0 % (0-1); EOSINOPHILS # (AUTO) 0.22 x10^3/uL (0-0.4); EOSINOPHILS % (AUTO) 1 % (1-7); LYMPHOCYTES # (AUTO) 0.63 x10^3/uL (1-3.4); LYMPHOCYTES % (AUTO) 3 % (22-44); MD SCAN; MONOCYTES # (AUTO) 0.56 x10^3/uL (0.2-0.8); MONOCYTES % (AUTO) 2 % (2-9); NEUTROPHILS # (AUTO) 22.36 x10^3/uL (1.8-6.8); NEUTROPHILS % (AUTO) 94 % (42-75)
[2019-01-17] MEDS: CEFTRIAXONE PMX 2GM/50ML 50 ML IV SCH (05:24)
[2019-01-17 07:37] VITALS: BP 103/44
[2019-01-17 07:53] VITALS: BP 113/49
[2019-01-17] MEDS: FENTANYL PF 100 MCG/2ML IVPush PRN ×2 (08:57→12:27)
[2019-01-17 09:00] VITALS: BP 116/53
[2019-01-17] MEDS: FUROSEMIDE 40 MG/4 ML IV SCH ×2 (10:21→22:20)
[2019-01-17] MEDS: ACETAMINOPHEN 650 MG/20.3 ML UDC PO PRN (13:12)
[2019-01-17] MEDS: AMIODARONE 900 MG in DEXTROSE 5% 482 ML IV PRN (13:15)
[2019-01-17 13:45] LABS: HCT (SEDRATE) 25.6 % (39.2-51.8)
[2019-01-17] MEDS ORDERED: NOREPINEPHRINE 4 MG in SODIUM CHLORIDE 0.9% 246 ML IV PRN (15:30)
[2019-01-17] MEDS: FENTANYL PF 2,500 MCG in SODIUM CHLORIDE 0.9% 200 ML IV PRN (19:44)
[2019-01-17] MEDS: ATORVASTATIN 80 MG TABLET PO SCH (21:00)
[2019-01-18] MEDS: INSULIN REGULAR 100 UNITS/ML, 3ML VIAL SQ-INSULIN SCH ×4 (03:00→20:49)
[2019-01-18] MEDS: ALBUMIN HUMAN 25% 100 ML IV SCH ×3 (03:07→19:59)
[2019-01-18 04:32] LABS: MEAN CORPUSCULAR HEMOGLOBIN 31.3 pg (27.5-34.5); MEAN CORPUSCULAR HGB CONC 34.2 g/dL (33.2-36.2); MEAN CORPUSCULAR VOLUME 91.6 fL (81-97); MEAN PLATELET VOLUME 9.1 fL (7.4-10.4); PLATELET COUNT 145 x10^3/uL (130-400); RED BLOOD COUNT 2.68 x10^6/uL (4.38-5.82); RED CELL DISTRIBUTION WIDTH 15.6 % (9.4-14.8)
[2019-01-18 04:42] LABS: ALBUMIN 3.2 g/dL (3.4-5.0); ANION GAP 9 mmol/L (5-15); CALCIUM 8.1 mg/dL (8.5-10.1); CHLORIDE 96 mmol/L (98-107)
[2019-01-18 04:47] LABS: % IRON SATURATION 18 % (20-55); ALANINE AMINOTRANSFERASE 38 U/L (12-78); ALKALINE PHOSPHATASE 262 U/L (45-117); BILIRUBIN,TOTAL 2.1 mg/dL (0.2-1.0); IRON LEVEL 14 mcg/dL (65-175); TOTAL IRON BINDING CAPACITY 78 mcg/dL (250-450); TOTAL PROTEIN 7.2 g/dL (6.4-8.2)
[2019-01-18] MEDS: PROPOFOL 100 ML IV PRN ×2 (04:51→15:03)
[2019-01-18] MEDS: FILTER 0.22 MICRON FOR AMIODARONE IV PRN (04:53)
[2019-01-18] MEDS: AMIODARONE 900 MG in DEXTROSE 5% 482 ML IV PRN (04:55)
[2019-01-18 04:56] LABS: MD YES
[2019-01-18 05:06] LABS: ANISOCYTOSIS 1+; BAND#(MANUAL) 0.83 x10^3/uL; BANDS%(MANUAL) 3 % (0-7); EOS#(MANUAL) 0.28 x10^3/uL (0.0-0.4); EOS% (MANUAL) 1 % (1-7); HYPOCHROMIA 1+; LYMPH#(MANUAL) 1.93 x10^3/uL (1-3.4); LYMPHS% (MANUAL) 7 % (22-44); MONOS#(MANUAL) 0.55 x10^3/uL (0.3-2.7); MONOS% (MANUAL) 2 % (2-9); SEG#(MANUAL) 23.93 x10^3/uL (1.8-6.8); SEGS% (MANUAL) 87 % (42-75)
[2019-01-18 05:07] LABS: <PLATELET ESTIMATE> ADEQUATE; LARGE PLATELETS 1+; POLYCHROMASIA 1+
[2019-01-18] MEDS: CEFTRIAXONE PMX 2GM/50ML 50 ML IV SCH (05:34)
[2019-01-18] MEDS: FUROSEMIDE 40 MG/4 ML IV SCH ×2 (11:55→20:50)
[2019-01-18] MEDS: PANTOPRAZOLE 40 MG IV IVPush SCH ×2 (11:55→23:02)
[2019-01-18 16:52] LABS: ANA SCREEN NEGATIVE (Negative)
[2019-01-18] MEDS: ATORVASTATIN 80 MG TABLET PO SCH (20:49)
[2019-01-19] MEDS: PROPOFOL 100 ML IV PRN ×3 (01:20→23:36)
[2019-01-19] MEDS: INSULIN REGULAR 100 UNITS/ML, 3ML VIAL SQ-INSULIN SCH ×4 (03:00→20:35)
[2019-01-19] MEDS: ALBUMIN HUMAN 25% 100 ML IV SCH (04:04)
[2019-01-19 04:14] LABS: MEAN CORPUSCULAR HEMOGLOBIN 30.3 pg (27.5-34.5); MEAN CORPUSCULAR HGB CONC 33.3 g/dL (33.2-36.2); PLATELET COUNT 179 x10^3/uL (130-400); RED BLOOD COUNT 2.68 x10^6/uL (4.38-5.82); RED CELL DISTRIBUTION WIDTH 16.2 % (9.4-14.8)
[2019-01-19 04:27] LABS: CHLORIDE 98 mmol/L (98-107)
[2019-01-19 04:35] LABS: ALANINE AMINOTRANSFERASE 32 U/L (12-78); ALBUMIN 3.1 g/dL (3.4-5.0); ALKALINE PHOSPHATASE 220 U/L (45-117); ANION GAP 7 mmol/L (5-15); BILIRUBIN,TOTAL 1.9 mg/dL (0.2-1.0); CALCIUM 8.2 mg/dL (8.5-10.1); CREATININE 2.84 mg/dL (0.7-1.3); TOTAL PROTEIN 7.4 g/dL (6.4-8.2)
[2019-01-19 05:02] LABS: BASOPHILS % (AUTO) 0 % (0-1); EOSINOPHILS # (AUTO) 0.24 x10^3/uL (0-0.4); EOSINOPHILS % (AUTO) 1 % (1-7); LYMPHOCYTES # (AUTO) 0.81 x10^3/uL (1-3.4); LYMPHOCYTES % (AUTO) 3 % (22-44); MD SCAN; MONOCYTES # (AUTO) 1.03 x10^3/uL (0.2-0.8); MONOCYTES % (AUTO) 4 % (2-9); NEUTROPHILS # (AUTO) 24.37 x10^3/uL (1.8-6.8); NEUTROPHILS % (AUTO) 92 % (42-75)
[2019-01-19] MEDS: CEFTRIAXONE PMX 2GM/50ML 50 ML IV SCH (05:55)
[2019-01-19] MEDS: AMIODARONE 900 MG in DEXTROSE 5% 482 ML IV PRN (06:47)
[2019-01-19] MEDS: NOREPINEPHRINE 8 MG in SODIUM CHLORIDE 0.9% 242 ML IV PRN ×2 (08:49→21:52)
[2019-01-19] MEDS: FUROSEMIDE 40 MG/4 ML IV SCH ×2 (09:08→20:36)
[2019-01-19] MEDS: ESOMEPRAZOLE 40 MG IV IVPush SCH ×2 (09:08→22:44)
[2019-01-19] MEDS ORDERED: OMNIPAQUE 350 MG/ML, 100ML BOTTLE ONE (11:39)
[2019-01-19] MEDS: FENTANYL PF 2,500 MCG in SODIUM CHLORIDE 0.9% 200 ML IV PRN (11:57)
[2019-01-19] MEDS: ATORVASTATIN 80 MG TABLET PO SCH (20:36)
[2019-01-20] MEDS: VASOPRESSIN 100 UNIT in SODIUM CHLORIDE 0.9% 495 ML IV PRN (01:23)
[2019-01-20] MEDS: INSULIN REGULAR 100 UNITS/ML, 3ML VIAL SQ-INSULIN SCH ×4 (02:43→22:55)
[2019-01-20 03:51] LABS: MEAN CORPUSCULAR HEMOGLOBIN 31.2 pg (27.5-34.5); MEAN CORPUSCULAR HGB CONC 33.7 g/dL (33.2-36.2); MEAN CORPUSCULAR VOLUME 92.4 fL (81-97); MEAN PLATELET VOLUME 8.5 fL (7.4-10.4); PLATELET COUNT 212 x10^3/uL (130-400); RED BLOOD COUNT 2.61 x10^6/uL (4.38-5.82)
[2019-01-20 04:01] LABS: ALANINE AMINOTRANSFERASE 31 U/L (12-78); ALBUMIN 2.7 g/dL (3.4-5.0); ANION GAP 7 mmol/L (5-15); CHLORIDE 98 mmol/L (98-107); CREATININE 2.81 mg/dL (0.7-1.3)
[2019-01-20 04:05] LABS: ALKALINE PHOSPHATASE 235 U/L (45-117); BILIRUBIN,TOTAL 1.3 mg/dL (0.2-1.0); TOTAL PROTEIN 7.1 g/dL (6.4-8.2)
[2019-01-20 04:09] LABS: BASOPHILS # (AUTO) 0.08 x10^3/uL (0-0.1); BASOPHILS % (AUTO) 0 % (0-1); EOSINOPHILS % (AUTO) 1 % (1-7); LYMPHOCYTES # (AUTO) 1.12 x10^3/uL (1-3.4); LYMPHOCYTES % (AUTO) 5 % (22-44); MD SCAN; MONOCYTES # (AUTO) 0.87 x10^3/uL (0.2-0.8); MONOCYTES % (AUTO) 4 % (2-9); NEUTROPHILS # (AUTO) 22.01 x10^3/uL (1.8-6.8); NEUTROPHILS % (AUTO) 91 % (42-75)
[2019-01-20] MEDS: CEFTRIAXONE PMX 2GM/50ML 50 ML IV SCH (05:28)
[2019-01-20] MEDS: NOREPINEPHRINE 8 MG in SODIUM CHLORIDE 0.9% 242 ML IV PRN ×2 (08:50→18:04)
[2019-01-20] MEDS: AMIODARONE 900 MG in DEXTROSE 5% 482 ML IV PRN (08:51)
[2019-01-20] MEDS: FUROSEMIDE 40 MG/4 ML IV SCH ×2 (09:48→20:39)
[2019-01-20] MEDS: HYDROCORTISONE 100 MG INJ. IV SCH ×3 (09:55→20:38)
--- NOTE | 2019-01-20 10:48 | NUR ---
TF GOAL: w/propofol: VITAL AF 1.2 @ 60ML/HR off propofol: VITAL AF 1.2 @ 65ML/HR
[2019-01-20] MEDS: ESOMEPRAZOLE 40 MG IV IVPush SCH ×2 (11:00→23:22)
[2019-01-20] MEDS: PROPOFOL 100 ML IV PRN (15:45)
[2019-01-20] MEDS: ATORVASTATIN 80 MG TABLET PO SCH (20:38)
[2019-01-21] MEDS: HYDROCORTISONE 100 MG INJ. IV SCH (03:17)
[2019-01-21] MEDS: PROPOFOL 100 ML IV PRN ×3 (04:46→21:38)
[2019-01-21] MEDS: INSULIN REGULAR 100 UNITS/ML, 3ML VIAL SQ-INSULIN SCH ×4 (04:46→21:32)
[2019-01-21 04:48] LABS: CLOSTRIDIUM DIFFICILE ANTIGEN NEGATIVE; CLOSTRIDIUM DIFFICILE TOXIN NEGATIVE (Negative)
[2019-01-21 05:30] LABS: MEAN CORPUSCULAR HEMOGLOBIN 30.6 pg (27.5-34.5); MEAN CORPUSCULAR VOLUME 92.7 fL (81-97); MEAN PLATELET VOLUME 9.2 fL (7.4-10.4); PLATELET COUNT 209 x10^3/uL (130-400); RED BLOOD COUNT 2.43 x10^6/uL (4.38-5.82)
[2019-01-21] MEDS: CEFTRIAXONE PMX 2GM/50ML 50 ML IV SCH (05:30)
[2019-01-21] MEDS: FENTANYL PF 2,500 MCG in SODIUM CHLORIDE 0.9% 200 ML IV PRN (05:33)
[2019-01-21 05:38] LABS: CHLORIDE 97 mmol/L (98-107)
[2019-01-21 05:45] LABS: ALANINE AMINOTRANSFERASE 30 U/L (12-78); ALBUMIN 2.6 g/dL (3.4-5.0); ALKALINE PHOSPHATASE 251 U/L (45-117); ANION GAP 9 mmol/L (5-15); BILIRUBIN,TOTAL 1.1 mg/dL (0.2-1.0); CALCIUM 7.9 mg/dL (8.5-10.1); CREATININE 2.95 mg/dL (0.7-1.3); TOTAL PROTEIN 7.4 g/dL (6.4-8.2); TRIGLYCERIDES 191 mg/dL (50-200)
[2019-01-21] MEDS: NOREPINEPHRINE 8 MG in SODIUM CHLORIDE 0.9% 242 ML IV PRN (06:17)
[2019-01-21 06:37] LABS: MD YES
[2019-01-21 06:42] LABS: ANISOCYTOSIS 1+; LYMPH#(MANUAL) 0.84 x10^3/uL (1-3.4); LYMPHS% (MANUAL) 5 % (22-44); MONOS#(MANUAL) 0.17 x10^3/uL (0.3-2.7); MONOS% (MANUAL) 1 % (2-9); SEG#(MANUAL) 15.79 x10^3/uL (1.8-6.8); SEGS% (MANUAL) 94 % (42-75)
[2019-01-21 06:43] LABS: POLYCHROMASIA 1+
[2019-01-21 06:44] LABS: <PLATELET ESTIMATE> ADEQUATE; <PLT MORPHOLOGY> NORMAL PLT MORPH
[2019-01-21] MEDS: AMIODARONE 200 MG TABLET PO SCH ×2 (08:49→21:27)
[2019-01-21] MEDS: METHYLNALTREXONE 12 MG/0.6 ML SQ SCH (08:49)
[2019-01-21] MEDS: FUROSEMIDE 40 MG/4 ML IV SCH ×2 (08:50→21:28)
[2019-01-21] MEDS: ESOMEPRAZOLE 40 MG IV IVPush SCH (12:42)
[2019-01-21] MEDS ORDERED: PANTOPROZOLE 40MG TABLET PO SCH (17:00)
[2019-01-21] MEDS: ATORVASTATIN 80 MG TABLET PO SCH (21:28)
[2019-01-22] MEDS: PROPOFOL 100 ML IV PRN ×2 (03:23→10:53)
[2019-01-22 03:46] LABS: ALANINE AMINOTRANSFERASE 33 U/L (12-78); ALBUMIN 2.6 g/dL (3.4-5.0); ANION GAP 8 mmol/L (5-15); CHLORIDE 99 mmol/L (98-107); CREATININE 2.78 mg/dL (0.7-1.3)
[2019-01-22 03:47] LABS: MEAN CORPUSCULAR HGB CONC 33.3 g/dL (33.2-36.2); MEAN PLATELET VOLUME 8.6 fL (7.4-10.4); PLATELET COUNT 206 x10^3/uL (130-400); RED BLOOD COUNT 2.39 x10^6/uL (4.38-5.82); RED CELL DISTRIBUTION WIDTH 16.6 % (9.4-14.8)
[2019-01-22 03:51] LABS: ALKALINE PHOSPHATASE 336 U/L (45-117); BILIRUBIN,TOTAL 1.3 mg/dL (0.2-1.0); TOTAL PROTEIN 7.4 g/dL (6.4-8.2)
[2019-01-22 04:13] LABS: BASOPHILS # (AUTO) 0.04 x10^3/uL (0-0.1); BASOPHILS % (AUTO) 0 % (0-1); EOSINOPHILS # (AUTO) 0.06 x10^3/uL (0-0.4); EOSINOPHILS % (AUTO) 0 % (1-7); LYMPHOCYTES # (AUTO) 0.76 x10^3/uL (1-3.4); LYMPHOCYTES % (AUTO) 4 % (22-44); MD SCAN; MONOCYTES # (AUTO) 0.81 x10^3/uL (0.2-0.8); MONOCYTES % (AUTO) 5 % (2-9); NEUTROPHILS # (AUTO) 16.34 x10^3/uL (1.8-6.8); NEUTROPHILS % (AUTO) 91 % (42-75)
[2019-01-22] MEDS: INSULIN REGULAR 100 UNITS/ML, 3ML VIAL SQ-INSULIN SCH ×2 (04:49→09:54)
[2019-01-22] MEDS: CEFTRIAXONE PMX 2GM/50ML 50 ML IV SCH (04:49)
[2019-01-22] MEDS: VASOPRESSIN 100 UNIT in SODIUM CHLORIDE 0.9% 495 ML IV PRN (08:05)
[2019-01-22] MEDS ORDERED: AMIODARONE 50 MG/ML, 3ML IVPush ONE (08:30)
[2019-01-22] MEDS: METHYLNALTREXONE 12 MG/0.6 ML SQ SCH (09:00)
[2019-01-22] MEDS ORDERED: FILTER 0.22 MICRON FOR AMIODARONE IV PRN (09:00)
[2019-01-22] MEDS ORDERED: AMIODARONE 150 MG in DEXTROSE 5% 100 ML IV ONE (09:00)
[2019-01-22] MEDS ORDERED: ESOMEPRAZOLE 40 MG IV IVPush SCH (09:00)
[2019-01-22] MEDS ORDERED: RISPERIDONE 1 MG/ML ORAL SOLN NG SCH (09:00)
[2019-01-22] MEDS: AMIODARONE 200 MG TABLET PO SCH (09:00)
[2019-01-22] MEDS: FUROSEMIDE 40 MG/4 ML IV SCH (09:18)
[2019-01-22] MEDS ORDERED: VECURONIUM 10 MG IVPush ONE (09:30)
[2019-01-22] MEDS: NOREPINEPHRINE 8 MG in SODIUM CHLORIDE 0.9% 242 ML IV PRN (10:57)
[2019-01-22] MEDS ORDERED: LORazepam INTENSOL 2 MG/ML SL PRN (12:00)
[2019-01-22] MEDS ORDERED: morphine SULFATE ORAL.CONC 20 MG/ML BC PRN (12:00)
[2019-01-22] MEDS ORDERED: LORazepam 2 MG/ML, 1ML IVPush PRN (12:00)
[2019-01-22] MEDS ORDERED: HYDROmorphone 2 MG/ML, 1ML IVPush PRN (12:00)
[2019-01-22] MEDS ORDERED: MORPHINE SULFATE 4 MG/ML, 1ML IVPush PRN ×2 (12:00)
[2019-01-22] MEDS ORDERED: morphine SULFATE ORAL.CONC 20 MG/ML SL PRN (12:00)
== END 2019-01-22 14:41 | disposition expired ==
LOC: ED 21:18 → EDIP 22:00 → 5SO 23:20 → CCU 01-10 16:20
PROVIDERS: ADMIT Family Medicine; ATTEND Family Medicine
PROC: 02HV33Z Insertion of Infusion Device into Superior Vena Cava, Percutaneous Approach (ICD-10-PCS; 2019-01-10)
PROC: B548ZZA Ultrasonography of Superior Vena Cava, Guidance (ICD-10-PCS; 2019-01-10)
PROC: 5A1955Z Respiratory Ventilation, Greater than 96 Consecutive Hours (ICD-10-PCS; principal; 2019-01-12)
PROC: 0BH17EZ Insertion of Endotracheal Airway into Trachea, Via Natural or Artificial Opening (ICD-10-PCS; 2019-01-12)
PROC: 0B978ZZ Drainage of Left Main Bronchus, Via Natural or Artificial Opening Endoscopic (ICD-10-PCS; 2019-01-12)
PROC: 0B938ZZ Drainage of Right Main Bronchus, Via Natural or Artificial Opening Endoscopic (ICD-10-PCS; 2019-01-12)
PROC: 5A1D70Z Performance of Urinary Filtration, Intermittent, Less than 6 Hours Per Day (ICD-10-PCS; 2019-01-12)
PROC: 02HV33Z Insertion of Infusion Device into Superior Vena Cava, Percutaneous Approach (ICD-10-PCS; 2019-01-12)
PROC: B548ZZA Ultrasonography of Superior Vena Cava, Guidance (ICD-10-PCS; 2019-01-12)
PROC: 30233N1 Transfusion of Nonautologous Red Blood Cells into Peripheral Vein, Percutaneous Approach (ICD-10-PCS; 2019-01-12)
PROC: 0W3P8ZZ Control Bleeding in Gastrointestinal Tract, Via Natural or Artificial Opening Endoscopic (ICD-10-PCS; 2019-01-13)
PROC: 5A1D70Z Performance of Urinary Filtration, Intermittent, Less than 6 Hours Per Day (ICD-10-PCS; 2019-01-13)
PROC: 5A1D70Z Performance of Urinary Filtration, Intermittent, Less than 6 Hours Per Day (ICD-10-PCS; 2019-01-14)
PROC: 5A1D70Z Performance of Urinary Filtration, Intermittent, Less than 6 Hours Per Day (ICD-10-PCS; 2019-01-15)
PROC: 5A1D70Z Performance of Urinary Filtration, Intermittent, Less than 6 Hours Per Day (ICD-10-PCS; 2019-01-16)
PROC: 5A1D70Z Performance of Urinary Filtration, Intermittent, Less than 6 Hours Per Day (ICD-10-PCS; 2019-01-17)
PROC: 5A1D70Z Performance of Urinary Filtration, Intermittent, Less than 6 Hours Per Day (ICD-10-PCS; 2019-01-18)
PROC: 5A1D70Z Performance of Urinary Filtration, Intermittent, Less than 6 Hours Per Day (ICD-10-PCS; 2019-01-19)
PROC: 5A1D70Z Performance of Urinary Filtration, Intermittent, Less than 6 Hours Per Day (ICD-10-PCS; 2019-01-20)
PROC: 5A1D70Z Performance of Urinary Filtration, Intermittent, Less than 6 Hours Per Day (ICD-10-PCS; 2019-01-21)
PROC: 5A1D90Z Performance of Urinary Filtration, Continuous, Greater than 18 hours Per Day (ICD-10-PCS; 2019-01-22)
DX: T82.7XXA Infection and inflammatory reaction due to other cardiac and vascular devices, implants and grafts, initial encounter (principal); A40.9 Streptococcal sepsis, unspecified; I21.A1 Myocardial infarction type 2; I50.43 Acute on chronic combined systolic (congestive) and diastolic (congestive) heart failure; E43 Unspecified severe protein-calorie malnutrition; J96.01 Acute respiratory failure with hypoxia; J18.9 Pneumonia, unspecified organism; K25.4 Chronic or unspecified gastric ulcer with hemorrhage; K85.90 Acute pancreatitis without necrosis or infection, unspecified; N17.0 Acute kidney failure with tubular necrosis; R65.21 Severe sepsis with septic shock; D68.59 Other primary thrombophilia; E87.1 Hypo-osmolality and hyponatremia; D62 Acute posthemorrhagic anemia; I13.0 Hypertensive heart and chronic kidney disease with heart failure and stage 1 through stage 4 chronic kidney disease, or unspecified chronic kidney disease; I38 Endocarditis, valve unspecified; I48.92 Unspecified atrial flutter; J44.0 Chronic obstructive pulmonary disease with (acute) lower respiratory infection; K22.10 Ulcer of esophagus without bleeding; R18.8 Other ascites; Z99.11 Dependence on respirator [ventilator] status; I49.01 Ventricular fibrillation; R29.6 Repeated falls; R57.8 Other shock; N18.9 Chronic kidney disease, unspecified; D64.9 Anemia, unspecified; E11.22 Type 2 diabetes mellitus with diabetic chronic kidney disease; E78.1 Pure hyperglyceridemia; E86.0 Dehydration; I25.10 Atherosclerotic heart disease of native coronary artery without angina pectoris; I25.5 Ischemic cardiomyopathy; I48.0 Paroxysmal atrial fibrillation; I48.2 Chronic atrial fibrillation; I50.82 Biventricular heart failure; K21.0 Gastro-esophageal reflux disease with esophagitis; K29.70 Gastritis, unspecified, without bleeding; K75.9 Inflammatory liver disease, unspecified; M60.9 Myositis, unspecified; S30.0XXA Contusion of lower back and pelvis, initial encounter; T50.2X5A Adverse effect of carbonic-anhydrase inhibitors, benzothiadiazides and other diuretics, initial encounter; Z16.29 Resistance to other single specified antibiotic; Z51.5 Encounter for palliative care; Z66 Do not resuscitate; Z79.01 Long term (current) use of anticoagulants; I25.2 Old myocardial infarction; Z68.26 Body mass index [BMI] 26.0-26.9, adult; Z79.84 Long term (current) use of oral hypoglycemic drugs; Z79.899 Other long term (current) drug therapy; Z79.4 Long term (current) use of insulin; Z79.82 Long term (current) use of aspirin; Z86.73 Personal history of transient ischemic attack (TIA), and cerebral infarction without residual deficits; Z87.891 Personal history of nicotine dependence; Z90.49 Acquired absence of other specified parts of digestive tract; Z95.0 Presence of cardiac pacemaker; Z95.1 Presence of aortocoronary bypass graft; Z95.810 Presence of automatic (implantable) cardiac defibrillator
CPT/HCPCS: 31624; 36415; 36556; 36573; 36600; 70450; 71045; 71250; 71260; 74018; 74176; 74177; 76770; 77001; 80048; 80053; 80061; 80069; 80162; 81001; 82040; 82140; 82150; 82306; 82533; 82550; 82570; 82728; 82803; 82805; 82962; 83036; 83516; 83540; 83550; 83605; 83690; 83735; 83880; 83970; 84100; 84145; 84300; 84478; 84484; 84550; 85014; 85018; 85025; 85520; 85610; 85651; 86038; 86140; 86704; 86706; 86708; 86709; 86803; 86850; 86900; 86923; 87040; 87070; 87077; 87081; 87086; 87147; 87181; 87205; 87324; 87338; 87340; 93005; 93308; 93321; 93325; 94002; 94003; 99291; G0378; J0456; J0696; J1644; J1815; J1940; J2250; J2597; J2704; J3010; P9047; Q9967; A4648; C1751; C9113; J0282; J1642; J1720; J2270; J7030; J7040; J7050; J7060; P9016